=== PATIENT | female | born 1980 | race Caucasian/White ===

== ENCOUNTER → 2024-03-30 11:29 | Outpatient (REF) | payer OTHER, SELFPAY | LOC: WDC 11:29 | PROVIDERS: ATTENDING PHYSICIAN Obstetrics & Gynecology; FAMILY PHYSICIAN Nurse Practitioner Family | DX: Z12.31 Encounter for screening mammogram for malignant neoplasm of breast (principal) | CPT/HCPCS: 77063; 77067 ==

== ENCOUNTER → 2025-05-11 08:15 | Outpatient (REF) | payer OTHER, SELFPAY | LOC: WDC 08:15 | PROVIDERS: ATTENDING PHYSICIAN Obstetrics & Gynecology; FAMILY PHYSICIAN Nurse Practitioner Family | DX: R92.8 Other abnormal and inconclusive findings on diagnostic imaging of breast (principal) | CPT/HCPCS: 77065 ==

== ENCOUNTER → 2025-05-17 07:35 | Outpatient (REF) | payer OTHER, SELFPAY | LOC: WDC 07:35 | PROVIDERS: ATTENDING PHYSICIAN Obstetrics & Gynecology; FAMILY PHYSICIAN Nurse Practitioner Family | DX: R92.1 Mammographic calcification found on diagnostic imaging of breast (principal) | CPT/HCPCS: 19081; 76098; 88305; A4648 ==

== ENCOUNTER → 2025-06-04 19:08 | Outpatient (REF) | payer OTHER, SELFPAY | LOC: MRI 3T 19:08 | PROVIDERS: ATTENDING PHYSICIAN Surgery; FAMILY PHYSICIAN Nurse Practitioner Family | DX: D05.91 Unspecified type of carcinoma in situ of right breast (principal) | CPT/HCPCS: 77049; A9585 ==

== ENCOUNTER 2025-06-11 06:14 | Day surgery (SDC) | payer OTHER, SELFPAY ==
[2025-06-01 09:25] LABS: Hematocrit 42.4 % (37.0-47.0); Hemoglobin 14.3 g/dL (12.0-16.0); Mean Corp Hgb Conc. 33.7 g/dL (33.0-37.0); Mean Corpuscular Volume 91.8 fL (81.0-99.0); Nucleated Red Blood Cells % 0 %; Platelet Count 278 10^3/uL (130-400); Red Cell Dist. Width 12.3 % (11.5-14.5)
[2025-06-01 09:29] LABS: HCG, Urine Qualitative Screen Negative
[2025-06-01 09:32] LABS: INR 0.99; PT 13.4 Sec (11.4-14.6)
[2025-06-01 09:33] LABS: APTT 29.9 Sec (23.4-35.0)
[2025-06-01 13:46] VITALS: BMI 24.8
[2025-06-11] VITALS (15 sets, daily range): BP systolic 113–139; BP diastolic 79–94; BMI 24.8
[2025-06-11] MEDS: TYLENOL 1000 MG PO (12:57)
[2025-06-11] MEDS: NORMOSOL-R/PLASMALYTE-A 1000 IV (12:58)
== END 2025-06-11 18:42 | disposition home or self-care (01) ==
LOC: SDS 06:14
PROVIDERS: ATTENDING PHYSICIAN Obstetrics & Gynecology; FAMILY PHYSICIAN Nurse Practitioner Family
DX: R87.613 High grade squamous intraepithelial lesion on cytologic smear of cervix (HGSIL) (principal); N85.7 Hematometra; N93.8 Other specified abnormal uterine and vaginal bleeding; Z98.890 Other specified postprocedural states
CPT/HCPCS: 57522; 81025; 85025; 85610; 85730; 88305; 88307; 93005

== ENCOUNTER 2025-06-18 14:04 | Emergency (ER) | payer OTHER, SELFPAY ==
[2025-06-18 14:06] VITALS: BP 150/93
--- NOTE | 2025-06-18 14:52 | ED.GENMED ---
History of Present Illness
General
Chief Complaint: Female Field Director/Gu symptoms
Source: patient
Exam Limitations: none
Time Seen by Provider: 06/18/25 14:35
Nursing documentation reviewed up to this point in time: agreed with
History of Present Illness
History of Present Illness:
Patient is a 44-year-old female currently 7 days s/p LEEP complicated by vaginal bleeding who presents to the emergency department for evaluation of persistent vaginal bleeding. Patient states that she had LEEP procedure performed by Dr. Strauss
06/11/2025. She has had light although consistent spotting since procedure. However, she states that this morning she woke up 'covered in blood'. She states that blood soaked through her underwear, pants, and onto the bed. She states that
earlier this morning she was bleeding through 1 pad about every 45 minutes. She also reports a passing 2 blood clots about the size of a golf ball.
She contacted the [facility] office who recommended evaluation in the emergency department given degree of bleeding. She does state that her bleeding seems to have slowed down since this morning.
She denies any abdominal pain/pelvic cramping. She denies any dizziness, lightheadedness, shortness of breath. She has not had any episodes of syncope.
Her last menstrual period was 05/24.
Phy Exam
Physical Exam
Physical Exam:
Vitals: Hypertensive and tachycardic on arrival however improved by my assessment. Afebrile
General: Patient is well appearing, no acute distress. Nontoxic appearing
Skin: Warm and dry, no rashes or lesions
Head: Normocephalic, atraumatic
Throat: Protecting airway
Neck: Normal ROM, no cervical spine tenderness
Cardiac: Regular rate and rhythm
Pulm: No apparent respiratory distress. Lungs clear bilaterally
Abdomen: Soft and nontender
Extremities: No evidence of cyanosis or edema
Neuro: Grossly intact
Psychiatric: Normal affect.
Course
Orders/Labs/Results
Orders:
Orders
06/18/25 14:51
Test Result ONCE
06/18/25 15:08
Complete Blood Count/With Diff Urgent
Comprehensive Metabolic Panel Urgent
HCG, Serum Qualitative Screen Urgent
06/18/25 15:15
Consult [facility] [[facility] CONSULT] Urgent
Consulting Provider: Lorin Holland
Was physician already notified: Yes
Abnormal Lab Results
06/18/25
15:08
WBC 12.3 H 10^3/uL
(4.8-10.8)
RBC 3.62 L 10^6/uL
(4.20-5.40)
Hgb 11.5 L g/dL
(12.0-16.0)
Hct 33.5 L %
(37.0-47.0)
MCH 31.8 H pg
(27.0-31.0)
Abs Immat Gran (auto) 0.1 H 10^3/uL
(0-0.05)
Absolute Neuts (auto) 9.6 H 10^3/uL
(1.4-6.5)
Absolute Monos (auto) 0.7 H 10^3/uL
(0.1-0.6)
Immature Gran % 0.6 H %
(0-0.5)
Neutrophils % 78.2 H %
(42.2-75.2)
Lymphocytes % 15.0 L %
(20.5-51.1)
Glucose 108 H mg/dl
(70-99)
ALT 54 H U/L
(0-35)
06/18/25 15:08
06/18/25 15:08
Vital Signs
Initial and Last Documented VS:
Initial Vital Signs
Temp Pulse Resp BP Pulse Ox
98.4 F 111 18 150/93 100
06/18/25 14:06 06/18/25 14:06 06/18/25 14:06 06/18/25 14:06 06/18/25 14:06
Last Documented Vital Signs
Temp Pulse Resp BP Pulse Ox
98.4 F 94 17 126/82 100
06/18/25 14:06 06/18/25 17:00 06/18/25 17:00 06/18/25 17:00 06/18/25 17:00
MDM/Problems Addressed
Differential Diagnosis Includes:
Not limited to: Postprocedural bleeding, malignancy, menstruation, symptomatic anemia, threatened , fibroids, etc.
MDM/Problems Addressed:
44-year-old female presenting with persistent vaginal bleeding seven days s/p LEEP due to cervical dysplasia. No abdominal or pelvic pain. No lightheadedness, shortness of breath, or episodes of syncope.
Patient is hemodynamically stable on arrival. On exam, she appears well and in no distress. Abdomen benign.
Basic labs unemarkable. Notably, her hemoglobin is stable. HCG negative.
I did discuss with [facility] loss prevention and safety manager, Doctor Holland, who came down and evaluated patient at bedside. She performed pelvic exam significant for very small clot at cercial os, which she removed and saw no evidence of active bleeding.
Possible bleeding secondary to recent procedure vs menstrual cycle. However � given patient is stable with no evidence of active bleeding, she is stable for discharge home. She will continue to follow-up with [facility] outpatient. Return precautions
discussed.
Chronic conditions affecting care:
Cervical dysplasia status post recent LEEP
Acute Exacerbation and/or Progression of Chronic Illness:
N/A
*Pulse Oximetry
SaO2: 100
Oxygen Mode of Delivery: Room air
Patient hypoxic: no
*EKG
Interpreted by ED Provider?: NA
*Assistant Clinical Director Interpretation
Rate: Assistant Clinical Director- N/A
*Critical Care Note
Total Time (30-74mins, 75-104mins- exclusive of procedures): Not Applicable
Data Reviewed
Review of Other/Old Records Reveals: Operative Reports (Reviewed LEEP procedure note from 06/11/2025)
Patient Management
Discussion with other providers: Machinery Engineer (Case discussed with [facility])
ED Attending Note
-
Portions of this chart may have been created with voice recognition software.� Occasional wrong word or��sound alike� substitutions may have occurred due to the inherent limitations of voice recognition software.
Discharge Plan
Departure
Patient Disposition: Home (Routine Discharge)
Date of Disposition: 06/18/25
Time of Disposition: 17:00
Patient with high blood pressure during this ER visit?: Yes
Condition: Good
Discharge Problem:
Vaginal bleeding
Instructions: BLOOD PRESSURE
Prescriptions:
No Action
Allermi
1 spray Not Applicable HS
Apple Pectin
1 cap PO DAILY
citalopram 10 mg Tablet
10 mg PO DAILY
methylphenidate HCl [Ritalin] 20 mg Tablet
20 mg PO DAILY
methylphenidate HCl [Ritalin] 20 mg Tablet
20 mg PO PRN PRN (Reason: ADHD)
spironolactone 100 mg Tablet
100 mg PO DAILY
vitamin D3-vitamin K2
1 tab PO DAILY
Referrals:
Camilla Hendrix CRNP [Family Provider, Family Practice]
Diid Strauss MD [Active, Gynecology]
Activity Restrictions/Additional Instructions:
RETURN TO THE EMERGENCY DEPARTMENT WITH ANY PERSISTENT/HEAVY VAGINAL BLEEDING, PASSING LARGE CLOTS, LIGHTHEADEDNESS OR DIZZINESS, EPISODES OF FAINTING, SEVERE ABDOMINAL PAIN, WORSENING IN CURRENT SYMPTOMS, OR ANY OTHER CONCERN
- As discussed your hemoglobin was stable today in the emergency department. You are not found to have any significant bleeding during examination with [facility]. Is possible this bleeding may be secondary to recent procedure or an abnormal menstrual
cycle
- Please continue to stay well-hydrated.
- Follow-up with [facility] as scheduled for further evaluation/management to ensure the bleeding resolves.
Monitor your symptoms closely and return to the emergency department with any acute worsening/new symptoms or any other concerns
Interventions
Interventions:
*Risk Screen - Suicide Last Done: 06/18/25 14:05
*General Assessment Last Done: 06/18/25 14:06
*Neglect/Abuse Screening Last Done: 06/18/25 14:06
*ED COVID-19 Vaccine History Last Done: 06/18/25 15:15
*ED Influenza Vaccine History Last Done: 06/18/25 15:15
[facility] Fall Risk Assessment Tool Last Done: 06/18/25 14:51
*Nursing Disposition Last Done: 06/18/25 17:20
ED-Female Genitourinary Assessment Last Done: 06/18/25 15:15
Discharge Date and Time
Discharge Date/Time: 06/18/25 17:21
Print Language: UPPER SORBIAN
[2025-06-18 15:14] VITALS: BP 131/88
[2025-06-18 15:23] VITALS: BMI 25.3
[2025-06-18 15:32] LABS: Hematocrit 33.5 % (37.0-47.0); Hemoglobin 11.5 g/dL (12.0-16.0); Mean Corp Hgb Conc. 34.3 g/dL (33.0-37.0); Mean Corpuscular Volume 92.5 fL (81.0-99.0); Nucleated Red Blood Cells % 0 %; Platelet Count 269 10^3/uL (130-400); Red Cell Dist. Width 13.1 % (11.5-14.5)
[2025-06-18 15:39] LABS: HCG, Serum Qualitative Screen Negative
[2025-06-18 15:47] LABS: ALT (SGPT) 54 U/L (0-35); AST (SGOT) 31 U/L (14-36); Albumin 4.4 g/dl (3.5-5.0); Alkaline Phosphatase 48 U/L (38-126); Blood Urea Nitrogen 11 mg/dl (7-17); Calcium 9.2 mg/dl (8.4-10.2); Carbon Dioxide 28 mmol/L (22-30); Chloride 102 mmol/L (98-107); Estimated Creatinine Clearance 74 ml/min; Glucose 108 mg/dl (70-99); Potassium 4.0 mmol/L (3.5-5.1); Sodium 136 mmol/L (135-145); Total Protein 7.3 g/dl (6.3-8.2); eGFR > 60.00
[2025-06-18 16:00] VITALS: BP 128/77
[2025-06-18 17:00] VITALS: BP 126/82
--- NOTE | 2025-06-18 21:28 | CON.MD ---
Consultation - Medical
-
44yo s/p LEEP on 06/12/25 (for High grade changes on ECC) c/b post-op bleeding requiring return to OR on the same day and additional cautery to LEEP bed. Presents to ER today due to heavy VB. She states her bleeding overall had improved but
then today she started to soak through pads and pass large clots. Bleeding now seems to have slowed. She denies pelvic pain/cramping. She states LMP 05/24. Normally does not have heavy periods.
She denies increased activity. Nothing in the vagina
Of note, she also has new diagnosis of DCIS of the Breast.
PAST MEDICAL HISTORY: Anxiety, Acne, ADD, dcis breast
PSHX: None
POBHx: x1
MEDICATIONS:
1. Citalopram 10 mg.
2. Methylphenidate 20 mg three times a day.
3. Spironolactone 100 mg one tablet daily.
ALLERGIES: Patient has allergy to sulfa- rash.
SOCIAL HISTORY: Patient does not smoke, drink, or do any recreational drugs.
REVIEW OF SYSTEMS: No fever/chills, mild nausea, no emesis.
FAMILY HISTORY: Noncontributory
Vitals & Labs: See Below
Gen: nad well appearing
Abd: soft, nt, nd
SSE: tiny clot noted at the cervix removed with ringed forceps. No active bleeding noted. Coffee ground material at the cervical bed c/w prior Monsel's application.
A/P: 44yo with heavy VB 6days post LEEP
Patient is hemodynamically stable. She has not needed any pain medication or TXA or IVF since presentation. I explained exam findings showing a dry LEEP bed, no active bleeding. Difficult to say if the source of bleeding was her surgery site that
has now clotted itself off, or an abnormal period as she is just about due for this now. Regardless, she is stable and no longer having significant bleeding thus explained there is no need to return to the OR. Advised continued pelvic rest, avoid
any activity that puts pressure in the pelvis too (no heavy lifting/straining/jumping etc). Reviewed she had a drop in her hgb from 14 (3 weeks ago) to now 11. Advised iron rich foods daily, otherwise f/u for routine post-op care but call office
with any further concerns.
Consultation
-
Date/Time Consultation Requested: 06/18/25 1758
Date/Time Consultation Performed: 06/18/25 5085
Requesting Provider: Guillermo
Performing Provider: Recinos
Reason for Consultation: Bleeding s/p LEEP
Vital Signs / Labs
-
Vital Signs and Labs:
Temp Pulse Resp BP Pulse Ox
98.4 F 94 17 126/82 100
06/18/25 14:06 06/18/25 17:00 06/18/25 17:00 06/18/25 17:00 06/18/25 17:00
06/18/25 15:08
06/18/25 15:08
06/18/25
15:08
WBC 12.3 H
RBC 3.62 L
Hgb 11.5 L
Hct 33.5 L
MCH 31.8 H
Abs Immat Gran (auto) 0.1 H
Absolute Neuts (auto) 9.6 H
Absolute Monos (auto) 0.7 H
Immature Gran % 0.6 H
Neutrophils % 78.2 H
Lymphocytes % 15.0 L
Glucose 108 H
ALT 54 H
== END 2025-06-18 17:21 | disposition home or self-care (01) ==
LOC: EMR 14:04
PROVIDERS: Physician Assistant; CONSULT PHYSICIAN Obstetrics & Gynecology; EMERGENCY PHYSICIAN Emergency Medicine; FAMILY PHYSICIAN Nurse Practitioner Family
DX: N93.9 Abnormal uterine and vaginal bleeding, unspecified (principal); Z98.890 Other specified postprocedural states; Z88.2 Allergy status to sulfonamides
CPT/HCPCS: 99283; 80053; 84703; 85025

== ENCOUNTER 2025-06-22 20:17 | Observation (INO) | payer OTHER, SELFPAY ==
[2025-06-22] VITALS (24 sets, daily range): BP systolic 93–129; BP diastolic 58–110; BMI 24.9
--- NOTE | 2025-06-22 09:13 | ED.GENMED ---
History of Present Illness
General
Chief Complaint: Vaginal Bleeding
Source: patient
Exam Limitations: none
Time Seen by Provider: 06/22/25 09:09
Nursing documentation reviewed up to this point in time: agreed with
History of Present Illness
History of Present Illness:
Patient is a 44-year-old female currently 11 days s/p LEEP complicated by vaginal bleeding who presents to the emergency department for evaluation of persistent vaginal bleeding. Patient states that around 2:45 AM she was woken up with a large
'gush' of vaginal bleeding. She states that she was unable to fall back asleep and has been bleeding heavily since. She states that she has bleeding through her pad every 30-45 minutes and passing large clots. She reports feeling extremely
lightheaded and experiencing a near syncopal event while at home.
Patient denies any fever. No abdominal pain however does note that she had a brief period of lower abdominal cramping which is since resolved. No shortness of breath.
Of note�patient was seen in the emergency department 4 days ago for similar symptoms. She states that she has been bleeding intermittently since discharge on Wednesday however sometimes only requires a panty liner. Bleeding intensified significantly
this morning.
She has not contacted her ZIGZAG ELASTIC ATTACHER this morning.
Review of Systems
Review of Systems
Allergies reviewed?: Yes
All Other Systems: ROS reviewed and negative except as documented in HPI and ROS
Phy Exam
Physical Exam
Physical Exam:
Vitals: Tachycardic, normotensive. Afebrile.
General: Patient is pale appearing
Skin: Warm and dry, no rashes or lesions
Head: Normocephalic, atraumatic
Eyes: Sclera nonicteric.
Throat: Protecting airway
Neck: Normal ROM, no cervical spine tenderness, no meningismus
Cardiac: Tachycardic, normal rhythm.
Pulm: Normal respiratory effort. Lungs clear bilaterally
Abdomen: Abdomen soft and nontender.
Extremities: No evidence of cyanosis or edema. Distal pulses intact
Neuro: AAOx3. Grossly intact
Psychiatric: Normal affect.
Course
Orders/Labs/Results
Orders:
Orders
06/22/25 09:24
0.9% Sodium Chloride 1000 ml [Nss] 1,000 ml IV BOLUS
06/22/25 09:25
Test Result ONCE
06/22/25 09:32
Consult ZIGZAG ELASTIC ATTACHER [ZIGZAG ELASTIC ATTACHER CONSULT] Urgent
Consulting Provider: Micah Camara
Was physician already notified: Yes
06/22/25 09:46
Type And Crossmatch [Type+Screen] Urgent
Complete Blood Count/With Diff Urgent
Comprehensive Metabolic Panel Urgent
HCG, Serum Qualitative Screen Urgent
06/22/25 10:03
Tranexamic Acid 1000 mg/100 ml [Tranexamic Acid] 1,000 mg in 100 ml IV ONCE
06/22/25 11:10
Ferric Subsulfate [Monsel's] 8 ml TOPICAL NOW STA
06/22/25 12:46
Pelvis (Non Obstetric) US [US Pelvis Only (non-obstetric)] Urgent
Comment: per DISHWASHING MACHINE REPAIRER
Reason For Exam: Vaginal bleeding, transabdominal only
06/22/25 13:49
Morphine Sulfate 4 mg IV NOW STA
06/22/25 13:50
Morphine Sulfate 4 mg .ROUTE .STK-MED ONE
06/22/25 13:52
HGB [Hemoglobin] Urgent
06/22/25 13:59
CT Abd/pelvis W Iv Cont Urgent
Comment:
Reason For Exam: severe lower abdominal pain, vaginal bleeding
06/22/25 14:29
Blood Bank Products [* Blood Bank Products] Urgent
Blood Bank Products: *Packed RBC Leuko (PRBC's
Quantity: 2
Transfuse Today: Yes
Reason: Anemia
06/22/25 14:36
Scopolamine [Transderm-Scop] 1 patch TRANSDERM PRE OP ONE
06/22/25 14:37
Fentanyl Citrate/Pf [Sublimaze] 25 mcg IV [id number] PRN
HYDROmorphone [Dilaudid] 0.25 mg IV [id number] PRN
HYDROmorphone [Dilaudid] 0.5 mg IV [id number] PRN
Ondansetron Injectable [Zofran] 4 mg IV PACU-ONCEPRN PRN
Notify MD As Directed
Notify physician if: for SDS patients with known or suspected sleep obstructive sleep apnea, monitor in the
PACU.
Notify MD for any apneic/desaturation episodes
O2 Therapy [RESP] Urgent
Titrate/Wean O2 to maintain O2 sat greater than (%): 92
Special Instructions: -Provide supplemental oxygen to achieve O2 sat of 92% or greater.
-After 15 min, may wean O2 and discontinue if patient is able to maintain O2 sat of 92%
or greater during recovery period.
If patient is a discharge home, without oxygen therapy, notify anestheiologist if
unable to maintain O2 SAT of 92% or greater on room air for MD clearance.
06/22/25 14:45
Normosol (Mult Electrolytes) [Normosol-R/Plasmalyte-A] 1,000 ml IV PER PROTOCOL
06/22/25 17:09
Dexamethasone Sod Phosphate [Decadron] 20 mg .ROUTE .STK-MED ONE
Lidocaine HCl/Pf [Xylocaine-Mpf 1% Vial] 50 mg .ROUTE .STK-MED ONE
Ondansetron Injectable [Zofran] 4 mg .ROUTE .STK-MED ONE
Propofol [Diprivan] 20 ml .ROUTE .STK-MED
06/22/25 17:10
Fentanyl Citrate/Pf [Sublimaze] 100 mcg .ROUTE .STK-MED ONE
Midazolam HCl [Versed] 2 mg .ROUTE .STK-MED ONE
06/22/25 18:09
Clindamycin [Cleocin 2% Vaginal Cream] 1 applic .ROUTE .STK-MED ONE
06/23/25 14:36
Remove Scopolamine Patch See Dose Instructions REMOVE ONCE ONE
Abnormal Lab Results
06/22/25 06/22/25
09:46 13:52
WBC 12.3 H 10^3/uL
(4.8-10.8)
RBC 3.30 L 10^6/uL
(4.20-5.40)
Hgb 10.5 L g/dL 7.7 L D g/dL
(12.0-16.0) (12.0-16.0)
Hct 31.1 L %
(37.0-47.0)
MCH 31.8 H pg
(27.0-31.0)
Abs Immat Gran (auto) 0.1 H 10^3/uL
(0-0.05)
Absolute Neuts (auto) 9.8 H 10^3/uL
(1.4-6.5)
Absolute Monos (auto) 0.7 H 10^3/uL
(0.1-0.6)
Immature Gran % 0.7 H %
(0-0.5)
Neutrophils % 79.8 H %
(42.2-75.2)
Lymphocytes % 13.5 L %
(20.5-51.1)
Glucose 108 H mg/dl
(70-99)
Crossmatch IS Only See Detail
06/22/25 13:52
06/22/25 09:46
Vital Signs
Initial and Last Documented VS:
Initial Vital Signs
Temp Pulse Resp BP Pulse Ox
97.8 F 119 16 123/91 94
06/22/25 08:37 06/22/25 08:37 06/22/25 08:37 06/22/25 08:37 06/22/25 08:37
Last Documented Vital Signs
Temp Pulse Resp BP Pulse Ox
98.2 F 102 13 93/66 100
06/22/25 16:46 06/22/25 17:15 06/22/25 17:15 06/22/25 17:00 06/22/25 17:15
MDM/Problems Addressed
Differential Diagnosis Includes:
Not limited to: Post procedural bleeding, menstrual cycle, uterine fibroids, symptomatic anemia, etc.
MDM/Problems Addressed:
40-year-old female with recent LEEP procedure complicated by persistent vaginal bleeding presenting with increased vaginal bleeding with clots. She did experience lightheadedness and near syncopal event at home. Patient seen in ED 4 days ago with
similar symptoms and states bleeding was improved until this morning. She is tachycardic however normotensive on arrival. Abdomen soft and nontender. Case was immediately discussed with ZIGZAG ELASTIC ATTACHER on-call, Dr. Camara. Will check labs, hCG, type
and screen.
Update: Labs reviewed. Mild leukocytosis of 12.3. Stable from prior. Hemoglobin of 10.5, 1 g drop from visit on Wednesday. Chemistry unremarkable. hCG negative. Dr. Strauss was down to evaluate patient at bedside who placed Monsel solution. She
recommended IV TXA and continued monitoring in ED.
Update: Patient has had continued bleeding despite TXA. Discussed with Dr. Strauss who evaluated patient bedside. Plan for ultrasound and likely OR for exam under anesthesia. Patient has remained hemodynamically stable.
Update 145: Patient apparently began experiencing severe abdominal pain and increasing lightheadedness while over in ultrasound. They were unable to complete study. On return to ED she appears extremely pale and uncomfortable. A bedside
ultrasound was performed by attending ED physician which reveals no evidence of free fluid in abdomen. Her blood pressure is stable. Will trend hemoglobin. Near syncope may be vasovagal in nature due to pain. Will treat pain and give IV fluids.
Update: Hemoglobin has dropped nearly 3 g to 7.7. 2 units [address] ordered. A CT scan was ordered given increase in pain suggestive of sinus tract along cervix/lower uterine segment. A bedside pelvic ultrasound was also performed and is pending.
Patient admitted to ZIGZAG ELASTIC ATTACHER service and transported to the OR for exam under anesthesia with Dr. Strauss.
Chronic conditions affecting care:
High-grade cervical dysplasia s/p recent LEEP
Acute Exacerbation and/or Progression of Chronic Illness:
Postprocedural vaginal bleeding
*Radiology
Radiology exam reviewed: radiology read reviewed
*Pulse Oximetry
SaO2: 94
Oxygen Mode of Delivery: Room air
Patient hypoxic: no
*EKG
Interpreted by ED Provider?: NA
*Black Top Paver Operator Interpretation
Rate: tachycardiac
Interpretation: abnormal
Heart Rate: 104
Rhythm: sinus
*Critical Care Note
Total Time (30-74mins, 75-104mins- exclusive of procedures): 35
comment:
Critical care statement: A total of 35 minutes of critical care time was provided for this patient. This includes management of unstable vital signs, evaluation of the patient at bedside, reviewing the patient's pertinent medical records, discussion
with consultants, review of old EKGs and review of pertinent medical records. This time with separate from time utilized to perform the aforementioned documented procedures
Patient Management
Discussion with other providers: Fiber Optics Technician (Case discussed with ZIGZAG ELASTIC ATTACHER)
ED Attending Note
-
Portions of this chart may have been created with voice recognition software.� Occasional wrong word or��sound alike� substitutions may have occurred due to the inherent limitations of voice recognition software.
Discharge Plan
Departure
Patient Disposition: Admit
Date of Disposition: 06/22/25
Time of Disposition: 16:14
Admit to doctor: Dr. Strauss
Presentation/result/management discussed w/ accepting MD/: [facility]
Discharge Problem:
Vaginal bleeding
Interventions
Interventions:
*Risk Screen - Suicide Last Done: 06/22/25 08:37
*General Assessment Last Done: 06/22/25 09:29
*Neglect/Abuse Screening Last Done: 06/22/25 08:37
*ED COVID-19 Vaccine History Last Done: 06/22/25 09:29
*ED Influenza Vaccine History Last Done: 06/22/25 09:29
[facility] Fall Risk Assessment Tool Last Done: 06/22/25 09:29
*Nursing Disposition Last Done: 06/22/25 17:39
ED-Female Genitourinary Assessment Last Done: 06/22/25 09:29
Discharge Date and Time
Discharge Date/Time: 06/22/25 17:39
[2025-06-22] MEDS: NSS 1000 IV (09:45)
[2025-06-22 10:20] LABS: Hematocrit 31.1 % (37.0-47.0); Hemoglobin 10.5 g/dL (12.0-16.0); Mean Corp Hgb Conc. 33.8 g/dL (33.0-37.0); Mean Corpuscular Volume 94.2 fL (81.0-99.0); Nucleated Red Blood Cells % 0 %; Platelet Count 323 10^3/uL (130-400); Red Cell Dist. Width 13.1 % (11.5-14.5)
[2025-06-22] MEDS: TRANEXAMIC ACID 100 IV (10:29)
[2025-06-22 10:31] LABS: ALT (SGPT) 29 U/L (0-35); AST (SGOT) 23 U/L (14-36); Albumin 4.5 g/dl (3.5-5.0); Alkaline Phosphatase 62 U/L (38-126); Blood Urea Nitrogen 14 mg/dl (7-17); Calcium 9.4 mg/dl (8.4-10.2); Carbon Dioxide 27 mmol/L (22-30); Chloride 102 mmol/L (98-107); Estimated Creatinine Clearance 57 ml/min; Glucose 108 mg/dl (70-99); Potassium 4.5 mmol/L (3.5-5.1); Sodium 135 mmol/L (135-145); Total Protein 7.2 g/dl (6.3-8.2); eGFR > 60.00
[2025-06-22 10:44] LABS: HCG, Serum Qualitative Screen Negative
[2025-06-22] MEDS: MORPHINE SULFATE 4 MG IV (13:51)
[2025-06-22 14:22] LABS: Hemoglobin 7.7 g/dL (12.0-16.0)
[2025-06-22] MEDS: TRANSDERM-SCOP 1 PATCH TRANSDERM (16:57)
[2025-06-22] MEDS: DILAUDID 0.25 MG IV ×2 (18:57→19:19)
[2025-06-22] MEDS: COLACE 100 MG PO (20:26)
[2025-06-22] MEDS: NORMOSOL-R/PLASMALYTE-A 1000 IV (20:29)
--- NOTE | 2025-06-22 22:13 | PTCARENOTE ---
Rec'd pt from PACU, report received from Oscar STONE. Pt AAOx3, mildly drowsy but awakens easily to verbal stimuli, offers no complaints of pain at this time. Peripad C/D/I. SpO2 100% on 2L O2 via NC. Remainder of assessment as documented. Pt received 1
unit PRBC in the OR, second unit pending. Pt offers no complaints at this time, updated on POC, oriented to call soares and unit, pt's Amos at the bedside, pt resting comfortably in bed.
[2025-06-22] MEDS: TYLENOL 650 MG PO (23:16)
[2025-06-23 00:04] VITALS: BP 113/79
[2025-06-23 03:03] VITALS: BP 110/69
[2025-06-23] MEDS: NORMOSOL-R/PLASMALYTE-A 1000 IV (04:39)
[2025-06-23 07:24] LABS: Hematocrit 31.5 % (37.0-47.0); Hemoglobin 10.9 g/dL (12.0-16.0); Mean Corp Hgb Conc. 34.6 g/dL (33.0-37.0); Mean Corpuscular Volume 89.7 fL (81.0-99.0); Platelet Count 236 10^3/uL (130-400); Red Cell Dist. Width 14.2 % (11.5-14.5)
[2025-06-23 07:39] VITALS: BP 115/74
[2025-06-23] MEDS: COLACE 100 MG PO (08:48)
--- NOTE | 2025-06-23 10:30 | W.PN.OBG.DWH ---
Today's Communication / Plan
-
anticpate dc home later today
Assessment/Plan
-
POD#1
stable
labs reviewed
monitor for bleeding
Subjective Data
-
no complaints, no bleeding, voided on own
Objective Data
-
Laboratory Results
06/23/25 06:37
06/22/25 09:46
Vital Signs
Temp Pulse Resp BP Pulse Ox
98.5 F 85 17 115/74 99
06/23/25 07:39 06/23/25 07:39 06/23/25 07:39 06/23/25 07:39 06/23/25 07:39
lungs cl
cor rrr
abd +bs soft, nt
ext nt
vag packing removed, no blood on gauze
[2025-06-23 11:12] VITALS: BP 106/70
[2025-06-23] MEDS: NORMOSOL-R/PLASMALYTE-A IV (12:19)
--- NOTE | 2025-06-23 12:20 | W.PN.OBG.DWH ---
Today's Communication / Plan
-
stable for dc
Assessment/Plan
-
stable for dc home
rto to officce as scheduled
Subjective Data
-
voided several times, denies vaginal bleeding
Objective Data
-
Laboratory Results
06/23/25 06:37
06/22/25 09:46
Vital Signs
Temp Pulse Resp BP Pulse Ox
98.8 F 100 18 106/70 100
06/23/25 11:12 06/23/25 11:12 06/23/25 11:12 06/23/25 11:12 06/23/25 11:12
[2025-06-23] MEDS: REMOVE SCOPOLAMINE PATCH 5 PATCH REMOVE (13:23)
--- NOTE | 2025-06-23 14:00 | CM ---
Met patient and spouse before she was leaving. She signed the Observation letter. COpy given to spouse.
Plan home no needs after procedure by Dr. Strauss today.
== END 2025-06-23 13:35 | disposition home or self-care (01) ==
LOC: 2 SOUTH 20:17
PROVIDERS: Physician Assistant; ADMITTING PHYSICIAN Obstetrics & Gynecology; CONSULT PHYSICIAN Obstetrics & Gynecology; EMERGENCY PHYSICIAN Emergency Medicine; FAMILY PHYSICIAN Nurse Practitioner Family
DX: N99.820 Postprocedural hemorrhage of a genitourinary system organ or structure following a genitourinary system procedure (principal); D05.10 Intraductal carcinoma in situ of unspecified breast; D64.9 Anemia, unspecified; Y83.8 Other surgical procedures as the cause of abnormal reaction of the patient, or of later complication, without mention of misadventure at the time of the procedure; D72.829 Elevated white blood cell count, unspecified; F41.9 Anxiety disorder, unspecified; L70.9 Acne, unspecified; N83.291 Other ovarian cyst, right side; N85.4 Malposition of uterus; Z79.899 Other long term (current) drug therapy; Z87.410 Personal history of cervical dysplasia
CPT/HCPCS: 57200; 36430; 74177; 76856; 80053; 84703; 85018; 85025; 85027; 86850; 86900; 86901; 86920; 96361; 96374; 96375; 99291; G0378; P9016; Q9967